=== PATIENT | male | born 1955 | race Caucasian/White ===

== ENCOUNTER 2019-10-19 01:59 | Outpatient (CLI) | payer BC, SELFPAY ==
[2019-10-19 19:20] LABS: SARS-CoV-2 RNA PCR Negative
== END 2019-10-19 02:00 | disposition home or self-care (01) ==
LOC: ANHCOVIDDT 01:59
PROVIDERS: PCP Family Medicine; Visit Provider Internal Medicine Gastroenterology
DX: Z01.812 Encounter for preprocedural laboratory examination (principal); Z20.828 Contact with and (suspected) exposure to other viral communicable diseases
CPT/HCPCS: 87635; C9803; U0003

== ENCOUNTER 2019-10-21 00:59 | Day surgery (SDC) | payer BC, SELFPAY ==
[2019-10-12 09:59] VITALS: BMI 32.3
--- NOTE | 2019-10-20 15:32 | WPDANESEPP ---
Anes - Eval Pre Procedure Procedure: Operation Date: 10/21/19 09:00 Proposed Procedures p Screening Colonoscopy - Tripp Pate MD Date/Time: 10/20/19 15:32 Pre Op Diagnosis: Neoplasm Screening/ Hx Colon Polyps Patient Data Age: 64 Gender: M Height: 1.68 m Weight: 91 kg Allergies Allergy/AdvReac Type Severity Reaction Status Date / Time No Known Allergies Allergy Unknown Verified 10/12/19 09:55 Home Medications Medication Instructions Recorded Confirmed Type blood sugar diagnostic #10 each 12/16/18 History hydrochlorothiazide 25 mg tablet 25 mg PO DAILY #90 tablet 12/16/18 10/12/19 Rx metoprolol succinate 50 mg 50 mg PO DAILY #90 tablet 12/16/18 10/12/19 Rx tablet,extended release 24 hr diltiazem HCl 240 mg 240 mg PO DAILY #90 cap 04/06/19 10/12/19 Rx capsule,extended release 24 hr losartan 100 mg tablet 100 mg PO DAILY #90 tablet 04/12/19 10/12/19 Rx metformin 500 mg tablet,extended 1,000 mg PO DAILY #180 tablet 04/12/19 10/12/19 Rx release 24 hr rosuvastatin 40 mg tablet 40 mg PO DAILY #90 tablet 04/12/19 10/12/19 Rx allopurinol 300 mg PO DAILY 10/12/19 10/12/19 History Patient hx anesthesia problems: none Family hx anesthesia problems: none PMFSH Past Medical History Medical History (Updated 10/20/19 @ 15:32 by Lary Santillan CRNA) Broken collarbone Controlled gout Hyperlipidemia Hypertension Obesity (BMI 30-39.9) Type 2 diabetes mellitus without complication Surgical History Surgical History History of appendectomy History of tonsillectomy [place] teeth extracted Social History Social History Years smoked: 8 Smoking status: Former smoker Tobacco type: cigarettes Second hand tobacco smoke exposure: Yes Smoking end date: 02/10/16 Alcohol intake: never Substance use: never Substance use type: does not use Gender identity (if verbalized by the patient): Male Spiritual care concerns: No Agree to blood products: Yes Exam Day of Procedure 10/20/19 15:32
[2019-10-21 08:20] VITALS: BP 167/94; PULSE 48; RESP 16; TEMP 36.4; O2SAT 99; BMI 33.3
[2019-10-21] MEDS: LACTATED RINGERS 1,000 ML 150 ML IV CONT (08:46)
[2019-10-21 08:51] LABS: Glucose Point of Care 119 (65-105)
--- NOTE | 2019-10-21 08:57 | WPDGICN ---
Assessment and Plan Assessment and plan (1) History of colon polyps: Code(s): Z86.010 - Personal history of colonic polyps Status: Acute Assessment and Plan: Patient had several adenomatous colon polyps removed from the colon by colonoscopy in 2014. Patient presents today for follow-up colonoscopy. Consider follow-up colonoscopy in in 5 years as well. GI Consult Note Consult date/time: 10/21/19 08:57 HPI: Jonathan Conrad is a 64 year old male Presents for follow-up surveillance colonoscopy. Patient has a history of adenomatous colon polyps removed from the colon 2014. His current weight appetite bowel movements are normal. He denies abdominal pain he has had no bleeding. Family history is noncontributory. Review of Systems Review of Systems: All systems reviewed & are unremarkable except as noted in HPI and below PMFSH Past Medical History Medical History Broken collarbone Controlled gout Hyperlipidemia Hypertension Obesity (BMI 30-39.9) Type 2 diabetes mellitus without complication Surgical History Surgical History History of appendectomy History of tonsillectomy [place] teeth extracted Family History Family History Grandparent Diabetes mellitus Mother Diabetes mellitus Social History Social History Years smoked: 8 Smoking status: Former smoker Tobacco type: cigarettes Second hand tobacco smoke exposure: Yes Smoking end date: 02/10/16 Alcohol intake: never Substance use: never Substance use type: does not use Living arrangements: with family Gender identity (if verbalized by the patient): Male Spiritual care concerns: No Agree to blood products: Yes Meds Home Medications and Allergies Home Medications Medication Instructions Recorded Confirmed Type blood sugar diagnostic #10 each 12/16/18 History hydrochlorothiazide 25 mg tablet 25 mg PO DAILY #90 tablet 12/16/18 10/12/19 Rx metoprolol succinate 50 mg 50 mg PO DAILY #90 tablet 12/16/18 10/12/19 Rx tablet,extended release 24 hr diltiazem HCl 240 mg 240 mg PO DAILY #90 cap 04/06/19 10/12/19 Rx capsule,extended release 24 hr losartan 100 mg tablet 100 mg PO DAILY #90 tablet 04/12/19 10/12/19 Rx metformin 500 mg tablet,extended 1,000 mg PO DAILY #180 tablet 04/12/19 10/12/19 Rx release 24 hr rosuvastatin 40 mg tablet 40 mg PO DAILY #90 tablet 04/12/19 10/12/19 Rx allopurinol 300 mg PO DAILY 10/12/19 10/12/19 History Allergies Allergy/AdvReac Type Severity Reaction Status Date / Time No Known Allergies Allergy Unknown Verified 10/21/19 08:35 Vital Signs Vital Signs - 24 hr 10/21/19 08:20 Temperature 97.6 F Pulse Rate 48 L Respiratory Rate 16 Blood Pressure 167/94 H Pulse Oximetry 99 Exam Narrative: Exam Narrative: Physical exam reveals patient to be alert. Vital signs stable. HEENT exam unremarkable. Lungs are clear to auscultation and percussion. Heart is without murmur or extra sounds. Abdominal exam bowel sounds are present soft nontender with no organomegaly. Digital external rectal exam is normal.
--- NOTE | 2019-10-21 08:57 | WPDANESEPPF ---
Anes - Initial Pre Proc Eval Procedure: Operation Date: 10/21/19 09:00 Proposed Procedures p Screening Colonoscopy - Tripp Pate MD Date/Time: 10/21/19 08:57 Surgeon: Tripp Pate MD Pre Op Diagnosis: Neoplasm Screening/ Hx Colon Polyps Patient Data Age: 64 Gender: M Height: 1.68 m Weight: 93.6 kg Last Vital Signs Temp 36.4 C 10/21/19 08:20 Pulse 48 L 10/21/19 08:20 Resp 16 10/21/19 08:20 BP 167/94 H 10/21/19 08:20 Pulse Ox 99 10/21/19 08:20 Allergies Allergy/AdvReac Type Severity Reaction Status Date / Time No Known Allergies Allergy Unknown Verified 10/21/19 08:35 Home Medications Medication Instructions Recorded Confirmed Type blood sugar diagnostic #10 each 12/16/18 History hydrochlorothiazide 25 mg tablet 25 mg PO DAILY #90 tablet 12/16/18 10/12/19 Rx metoprolol succinate 50 mg 50 mg PO DAILY #90 tablet 12/16/18 10/12/19 Rx tablet,extended release 24 hr diltiazem HCl 240 mg 240 mg PO DAILY #90 cap 04/06/19 10/12/19 Rx capsule,extended release 24 hr losartan 100 mg tablet 100 mg PO DAILY #90 tablet 04/12/19 10/12/19 Rx metformin 500 mg tablet,extended 1,000 mg PO DAILY #180 tablet 04/12/19 10/12/19 Rx release 24 hr rosuvastatin 40 mg tablet 40 mg PO DAILY #90 tablet 04/12/19 10/12/19 Rx allopurinol 300 mg PO DAILY 10/12/19 10/12/19 History Laboratory Tests 10/21/19 08:47 POC Capillary Glucose 119 mg/dl H mg/dl (65-105) Patient hx anesthesia problems: none Family hx anesthesia problems: none PMFSH Past Medical History Medical History Broken collarbone Controlled gout Hyperlipidemia Hypertension Obesity (BMI 30-39.9) Type 2 diabetes mellitus without complication Surgical History Surgical History History of appendectomy History of tonsillectomy [place] teeth extracted Family History Family History Grandparent Diabetes mellitus Mother Diabetes mellitus Social History Social History Years smoked: 8 Smoking status: Former smoker Tobacco type: cigarettes Second hand tobacco smoke exposure: Yes Smoking end date: 02/10/16 Alcohol intake: never Substance use: never Substance use type: does not use Living arrangements: with family Gender identity (if verbalized by the patient): Male Spiritual care concerns: No Agree to blood products: Yes Anes - Eval Final PreProcedure Day of Procedure 10/21/19 08:57 Patient weight: obese Heart: regular rate and rhythm Lungs: clear to auscultation and normal air movement Airway: Mallampati scale class II Neurological: alert and oriented Last oral intake: >/= 8 hours ASA classification: III Emergent: no Anesthetic plan: proceed Anesthesia type and monitoring: general GIVS Informed Consent: The patient's anesthetic plan and its attendant risks and benefits were discussed with the patient/family/POA. Questions were solicited and answers provided to the satisfaction of the patient/family/POA.
[2019-10-21 09:21] VITALS: BP 113/67; PULSE 61; RESP 15; O2SAT 96
[2019-10-21 09:31] VITALS: BP 127/68; PULSE 52; RESP 16; O2SAT 97
[2019-10-21 09:41] VITALS: BP 149/86; PULSE 49; RESP 17; O2SAT 97
== END 2019-10-21 09:52 | disposition home or self-care (01) ==
PROVIDERS: PCP Family Medicine; Visit Provider Internal Medicine Gastroenterology
PROC: 0DJD8ZZ Inspection of Lower Intestinal Tract, Via Natural or Artificial Opening Endoscopic (ICD-10-PCS; CPT 45378; principal; 2019-10-21 09:00)
DX: Z12.11 Encounter for screening for malignant neoplasm of colon (principal); K57.30 Diverticulosis of large intestine without perforation or abscess without bleeding; K64.8 Other hemorrhoids; Z86.010 Personal history of colon polyps; I10 Essential (primary) hypertension; E78.5 Hyperlipidemia, unspecified; E11.9 Type 2 diabetes mellitus without complications; M10.9 Gout, unspecified; E66.9 Obesity, unspecified; Z68.33 Body mass index [BMI] 33.0-33.9, adult; Z87.891 Personal history of nicotine dependence; Z79.84 Long term (current) use of oral hypoglycemic drugs
CPT/HCPCS: 45378; J2704; J7120